=== PATIENT | male | born 1955 | race Caucasian/White ===

== ENCOUNTER 2020-05-25 13:57 | Outpatient (CLI) | payer MEDICARE ==
[2020-05-26 02:10] LABS: SARS-CoV-2 PCR by NAA Not Detected (NotDetected)
== END 2020-05-25 13:58 | disposition home or self-care (01) ==
LOC: CSHLAB 13:57
PROVIDERS: ATTEND Internal Medicine Gastroenterology
DX: Z20.822 Contact with and (suspected) exposure to COVID-19 (principal); K63.5 Polyp of colon
CPT/HCPCS: 87635; U0003; U0005

== ENCOUNTER 2020-05-28 06:25 | Day surgery (SDC) | payer MEDICARE ==
[2020-05-27 09:45] VITALS: BMI 34.2
[2020-05-28] MEDS ORDERED: Lidocaine 1% MPF 2 ML VIAL ONE (06:52)
[2020-05-28] MEDS ORDERED: PROPOFOL 40 ML ONE (07:40)
[2020-05-28] MEDS ORDERED: PROPOFOL 20 ML ONE (08:06)
== END 2020-05-28 10:30 | disposition home or self-care (01) ==
LOC: CSHSDC 06:25
PROVIDERS: ATTEND Internal Medicine Gastroenterology
DX: K63.5 Polyp of colon (principal); R15.9 Full incontinence of feces; I10 Essential (primary) hypertension; E11.9 Type 2 diabetes mellitus without complications; E78.5 Hyperlipidemia, unspecified; J44.9 Chronic obstructive pulmonary disease, unspecified; G47.30 Sleep apnea, unspecified; F41.8 Other specified anxiety disorders; K57.30 Diverticulosis of large intestine without perforation or abscess without bleeding; K64.9 Unspecified hemorrhoids
CPT/HCPCS: 36416; 88305; 94640; J2704; J7620